=== PATIENT | female | born 1990 | race American Indian/Alaskan Native ===

== ENCOUNTER 2016-12-30 15:24 | Emergency (ER) | payer OTHER ==
[2016-12-30 16:24] VITALS: BP 130/66
[2016-12-30] MEDS ORDERED: TORADOL IM ONE (18:47)
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
== END 2016-12-30 20:31 | disposition home or self-care (01) ==
LOC: ED 15:24
DX: M25.511 Pain in right shoulder (principal); M25.512 Pain in left shoulder; M54.6 Pain in thoracic spine; F17.200 Nicotine dependence, unspecified, uncomplicated; V49.49XA Driver injured in collision with other motor vehicles in traffic accident, initial encounter; Y93.89 Activity, other specified; Y92.89 Other specified places as the place of occurrence of the external cause; Y99.8 Other external cause status
CPT/HCPCS: 81025; 96372; 99283; J1885

== ENCOUNTER 2017-05-22 15:47 | Emergency (ER) | payer MEDICAID ==
[2017-05-22 16:19] LABS: Basophils % (Auto) 0.9 % (0.0-1.8); Eosinophils % (Auto) 0.6 % (0.0-4.3); Hematocrit 42.4 % (30.3-42.9); Hemoglobin 14.9 gm/dl (10.1-14.3); Mean Corpuscular HGB Conc 35 % (30-34); Mean Corpuscular Hemoglobin 34 pg (28-32); Mean Corpuscular Volume 98 fl (79-97); Platelet Count 234 K/mm3 (140-440); Red Blood Count 4.33 M/mm3 (3.65-5.03); Red Cell Distribution Width 13.2 % (13.2-15.2); White Blood Count 8.8 K/mm3 (4.5-11.0)
[2017-05-22 16:41] LABS: Alanine Aminotransferase 14 units/L (7-56); Albumin 4.3 g/dL (3.9-5); Albumin/Globulin Ratio 1.4 %; Alkaline Phosphatase 50 units/L (35-129); Anion Gap 19 mmol/L; Blood Urea Nitrogen 9 mg/dL (7-17); Calcium 8.9 mg/dL (8.4-10.2); Carbon Dioxide 21 mmol/L (22-30); Chloride 102.4 mmol/L (98-107); Glucose 93 mg/dL (65-100); Lipase 14 units/L (13-60); Sodium 138 mmol/L (137-145); Total Protein 7.4 g/dL (6.3-8.2)
[2017-05-22 17:04] LABS: Bilirubin,Urine NEG (Negative); Blood,Urine NEG (Negative); Ketones,Urine NEG (Negative); Leukocyte Esterase,Urine NEG (Negative); Mucus,Urine FEW /HPF; Nitrite,Urine NEG (Negative); Urobilinogen,Urine < 2.0 mg/dL (<2.0); WBC,Urine < 1.0 /HPF (0.0-6.0)
[2017-05-22 20:10] VITALS: BP 130/68
[2017-05-22] MEDS ORDERED: ZOFRAN IM ONE (20:23)
--- NOTE | 2017-05-22 20:28 | Emergency Department Report ---
ED Abdominal Pain HPI - General Chief Complaint: Abdominal Pain Stated Complaint: NAUSEA AND VOMITING Time Seen by Provider: 05/22/17 20:18 Source: patient Mode of arrival: Ambulatory Limitations: No Limitations - History of Present Illness Initial Comments: 27 years old female coming today is abdominal pain crampy in nature diffuse started this morning associated with his nausea vomiting and watery diarrhea. Patient denied any fever. Patient stated that she ate a frozen D yesterday and she thinks is mildly the course. No other complaints. MD Complaint: abdominal pain -: Gradual, This morning Location: diffuse Radiation: none Severity: moderate Severity scale (0 -10): 3 Quality: cramping Consistency: intermittent Associated Symptoms: nausea, vomiting, diarrhea. denies: fever - Related Data Previous Rx's Medication Instructions Recorded Last Taken Type Naproxen [Naprosyn TAB] 500 mg PO BID #30 tablet 12/30/16 Unknown Rx methOCARBAMOL [Robaxin TAB] 500 mg PO BID #30 tablet 12/30/16 Unknown Rx Ondansetron [Zofran Odt] 4 mg PO Q8HR PRN #14 tab.rapdis 05/22/17 Unknown Rx Allergies Allergy/AdvReac Type Severity Reaction Status Date / Time No Known Allergies Allergy Verified 05/22/17 15:51 ED Review of Systems ROS: Stated complaint: NAUSEA AND VOMITING Other details as noted in HPI Comment: All other systems reviewed and negative Constitutional: denies: chills, diaphoresis, fever Respiratory: denies: cough, orthopnea, shortness of breath Cardiovascular: denies: chest pain, palpitations, dyspnea on exertion Gastrointestinal: abdominal pain, nausea, vomiting, diarrhea. denies: constipation, hematemesis, melena, hematochezia Genitourinary: denies: urgency, dysuria, frequency Neurological: denies: headache ED Past Medical Hx - Social History Smoking Status: Current Some Day Smoker Substance Use Type: Alcohol - Medications Home Medications: Home Medications Medication Instructions Recorded Confirmed Last Taken Type Naproxen [Naprosyn TAB] 500 mg PO BID #30 tablet 12/30/16 Unknown Rx methOCARBAMOL [Robaxin TAB] 500 mg PO BID #30 tablet 12/30/16 Unknown Rx Ondansetron [Zofran Odt] 4 mg PO Q8HR PRN #14 tab.rapdis 05/22/17 Unknown Rx ED Physical Exam - General Limitations: No Limitations General appearance: alert, in no apparent distress - Head Head exam: Present: normocephalic - Neck Neck exam: Present: normal inspection. Absent: meningismus - Respiratory Respiratory exam: Present: normal lung sounds bilaterally. Absent: respiratory distress, wheezes, rales, rhonchi - Cardiovascular Cardiovascular Exam: Present: regular rate, normal rhythm, normal heart sounds - GI/Abdominal GI/Abdominal exam: Present: soft, normal bowel sounds. Absent: distended, tenderness, guarding, rebound, rigid, mass, bruit, pulsatile mass, hernia - Back Exam Back exam: Present: normal inspection. Absent: CVA tenderness (R), CVA tenderness (L) - Neurological Exam Neurological exam: Present: alert, oriented X3, CN II-XII intact - Skin Skin exam: Present: warm, intact, normal color ED Course Vital Signs 05/22/17 05/22/17 15:51 20:00 Temperature 98.4 F 98.3 F Pulse Rate 56 L 78 Respiratory 16 16 Rate Blood Pressure 129/81 Blood Pressure 130/68 [Left] O2 Sat by Pulse 100 100 Oximetry ED Medical Decision Making - Lab Data Result diagrams: 05/22/17 16:09 05/22/17 16:09 - Medical Decision Making Patient laboratory tests came back with no acute abnormalities. Patient does not have any abdominal tenderness given the history of nausea vomiting and watery diarrhea probably this is food poisoning patient will be discharged home and advised to follow-up with her primary care physician prescription for Zofran ODT was given. Critical care attestation.: If time is entered above; I have spent that time in minutes in the direct care of this critically ill patient, excluding procedure time. ED Disposition Clinical Impression: Abdominal pain Disposition: DC-01 TO HOME OR SELFCARE Is pt being admited?: No Condition: Stable Instructions: Abdominal Pain (ED), Gastroenteritis (ED) Prescriptions: Ondansetron [Zofran Odt] 4 mg PO Q8HR PRN #14 tab.rapdis PRN Reason: Nausea And Vomiting Referrals: PRIMARY CARE,MD [Primary Care Provider] - 3-5 Days
== END 2017-05-22 20:48 | disposition home or self-care (01) ==
LOC: ED 15:47
DX: R10.84 Generalized abdominal pain (principal); F17.200 Nicotine dependence, unspecified, uncomplicated
CPT/HCPCS: 36415; 80053; 81001; 83690; 84703; 85025; 96372; 99283; J2405